=== PATIENT | female | born 1975 | race African-American/Black ===

== ENCOUNTER 2016-08-31 16:04 | Emergency (ER) | payer MEDICAID ==
[~2016-08-31] VITALS: Ht 180.3 cm; Wt 100.6 kg
[~2016-08-31 16:04] MED LIST: FERROUS GLUCON325 M2 PO; IBUP800T PO; LEVO500T33 PO; LISI-167 PO; LISI5TAB7 PO; NICO1PAT10 TD; OXYC-229 PO; SENN1TAB5 PO; SIME80TA16 PO
[2016-08-31 16:12] VITALS: BP 133/81
[2016-08-31] MEDS ORDERED: HYDROcodone/APAP 5/325 TABLET ONE (17:06)
[2016-08-31] MEDS ORDERED: IBUPROFEN 200 MG TABLET ONE (17:06)
[2016-08-31 17:14] LABS: ASPARTATE AMINO TRANSFERASE 15 U/L (15-37); BLOOD UREA NITROGEN 13 mg/dL (7-18)
[2016-08-31] MEDS ORDERED: IBUPROFEN 800 MG TABLET PO ONE (17:30)
[2016-08-31] MEDS ORDERED: HYDROcodone/APAP 5/325 TABLET PO ONE (17:30)
[2016-08-31] MEDS ORDERED: GABAPENTIN 300 MG CAPSULE PO ONE (18:30)
== END 2016-08-31 18:42 | disposition home or self-care (01) ==
LOC: ED 18:20
DX: G62.9 Polyneuropathy, unspecified (principal); E05.90 Thyrotoxicosis, unspecified without thyrotoxic crisis or storm; F17.200 Nicotine dependence, unspecified, uncomplicated
CPT/HCPCS: 36415; 80053; 82607; 82746; 84443; 85025; 99284